=== PATIENT | female | born 2005 | race Two or more races ===

== ENCOUNTER 2024-05-22 11:41 | Emergency (ER) | payer MEDICAID, SELFPAY ==
[2024-05-22 12:02] VITALS: BP 122/73; PULSE 117; RESP 16; TEMP 37.3; O2SAT 96; BMI 22.8
--- NOTE | 2024-05-22 12:03 | ED.GENADULT ---
HPI - General Adult General Chief complaint: General Medical Stated complaint: fever Time Seen by Provider: 05/22/24 14:17 Source: patient, RN notes reviewed and old records reviewed Mode of arrival: ambulatory Limitations: no limitations History of Present Illness ED Provider: Humza HPI narrative: 18-year-old healthy female presents for evaluation of fevers, congestion, diarrhea and vomiting for the last 4 days. She has 2 young daughters that are here with very similar symptoms. The patient denies any sharp pains Related Data Allergies Allergy/AdvReac Type Severity Reaction Status Date / Time peanut Allergy Swelling Verified 05/22/24 12:03 SALMON Allergy Unknown SHORTNESS Uncoded 01/21/20 18:53 OF BREATH Review of Systems Constitutional: Constitutional: Reports body ache(s), Reports fatigue, Reports fever(s) and Reports headache(s) ENT: Reports headache(s) and Denies sore throat Cardiovascular: Cardiovascular: Denies chest pain and Denies dyspnea Respiratory: Respiratory: Reports cough and Denies dyspnea Gastrointestinal: Gastrointestinal: Denies abdominal pain, Reports diarrhea, Reports nausea and Reports vomiting Neurologic: Reports headache(s) Endocrine: Endocrine: Reports fatigue PMFSH Social History Social History Advance Directives: No Advance Directives Information Provided: Yes Physical Exam ED Vital Signs: Vital Signs - 24 hr 05/22/24 12:02 Temperature 99.1 F Pulse Rate 117 H Respiratory Rate 16 Blood Pressure 122/73 Pulse Oximetry 96 Oxygen Delivery Method Room Air BMI result Body Mass Index 22.8 Const General: healthy appearing, comfortable, no acute distress, alert and awake Nutritional Appearance: well nourished Orientation/consciousness: patient oriented x3 HENMT Head: Yes normocephalic and Yes atraumatic Eyes Eyelids: Yes eyelids normal Conjunctivae: conjunctivae normal Sclerae: sclerae normal Corneas: corneas normal Pupils: Equal, round and reactive pupils present EOM: EOMs intact bilaterally Neck Neck: Yes full ROM Resp Effort & Inspection: normal respiratory effort, able to speak in complete sentences and not labored Skin General skin exam: elasticity normal Neuro General: patient oriented x3 Cranial nerves: Yes Equal, round and reactive pupils present and Yes Bilaterally intact EOM present Cognition (Neuro): normal cognition Extrem Other: Moving all extremities well without any obvious deformities Course Course Course Narrative: RME, this is a rapid medical exam performed by Peter Ching please refer to primary provider for complete H&P- 18-year-old female presents for evaluation of fever, body aches. She is here with her 2 daughters who have similar symptoms. Medical Decision Making Medical Decision Making [facility] Narrative: 18-year-old female presents for evaluation of flu-like symptoms. Her viral swabs tested positive for COVID-19. Her 2 daughters also tested positive for COVID-19. She is not hypoxic or septic. Plan for symptomatic treatment only Differential Diagnosis Differential Diagnoses: The differential diagnosis associated with the presentation includes COVID-19 Viral syndrome Upper respiratory infection Influenza Strep pharyngitis Lab Data Labs: Lab Results 05/22/24 Range/Units 13:23 Influenza Type A (PCR) NEGATIVE (Negative) Influenza Type B (PCR) NEGATIVE (Negative) RSV RNA Qual (PCR) NEGATIVE (Negative) SARS-CoV-2 RNA (RT-PCR) POSITIVE A (Negative) Discharge Plan Discharge Clinical Impression: COVID-19 Patient Disposition: Home, Self-Care Instructions: COVID-19 (Coronavirus Disease 2019) (ED) Additional Instructions: You tested positive for COVID-19. Use ibuprofen/Tylenol for fevers and body aches. Follow-up with your primary doctor, return for new or worsening symptoms Print Language: Pashto
[2024-05-22 14:14] LABS: Influenza A PCR NEGATIVE (Negative); Influenza B PCR NEGATIVE (Negative); Resp Syncy Virus RNA Qual PCR NEGATIVE (Negative); SARS COV2 PCR INHOUSE POSITIVE (Negative)
[2024-05-22 14:58] VITALS: BP 122/73; PULSE 105; RESP 16; TEMP 37.3; O2SAT 96
== END 2024-05-22 14:58 | disposition home or self-care (01) ==
PROVIDERS: Physician Assistant; Emergency Provider Emergency Medicine
DX: U07.1 COVID-19 (principal); R50.9 Fever, unspecified; J02.9 Acute pharyngitis, unspecified
CPT/HCPCS: 0241U; 99282; 99283